=== PATIENT | female | born 1950 | race Caucasian/White ===

== ENCOUNTER 2018-02-07 11:23 | Emergency (ER) | payer OTHER | END 2018-02-07 14:01 | disposition home or self-care (01) | LOC: FTE 11:23 | DX: M79.674 Pain in right toe(s) (principal); L60.0 Ingrowing nail; I10 Essential (primary) hypertension; F17.210 Nicotine dependence, cigarettes, uncomplicated | CPT/HCPCS: 11765; 73660; 99283-25 ==

== ENCOUNTER 2018-09-13 12:24 | Emergency (ER) | payer OTHER ==
[2018-09-13 15:36] LABS: ADD MAN DIFF? NO
[2018-09-13] MEDS: SOD CHLORIDE 0.9% 1,000 ML IV (15:39)
[2018-09-13] MEDS: traMADol 50 MG TAB PO (15:39)
[2018-09-13 15:47] LABS: BASOPHILS % 0.4 % (0.0-2.0); EOSINOPHILS # 0.2 10^3/ul (0.0-0.5); HEMATOCRIT 46.8 % (37.0-47.0); HEMOGLOBIN 15.5 g/dl (12.0-16.0); LYMPHOCYTES # 2.3 10^3/ul (0.8-2.9); LYMPHOCYTES % 33.4 % (15.0-51.0); MEAN CORPUSCULAR HEMOGLOBIN 32.9 pg (29.0-33.0); MEAN CORPUSCULAR HGB CONC 33.1 g/dl (32.0-37.0); MEAN CORPUSCULAR VOLUME 99.4 fl (82.0-101.0); MEAN PLATELET VOLUME 11.5 fl (7.4-10.4); MONOCYTE # 0.4 10^3/ul (0.3-0.9); MONOCYTES % 5.5 % (0.0-11.0); NEUTROPHILS % 57.6 % (39.0-77.0); PLATELET COUNT 168 10^3/UL (140-415); RED BLOOD COUNT 4.71 10^6/ul (4.20-5.40)
[2018-09-13] MEDS: DIPHENOXYLATE/ATROPINE TAB PO (15:52)
[2018-09-13 16:15] LABS: ALANINE AMINOTRANSFERASE 14 IU/L (13-69); ALBUMIN 4.6 g/dl (3.3-4.9); ALBUMIN/GLOBULIN RATIO 1.53; ALKALINE PHOSPHATASE 57 IU/L (42-121); ANION GAP 12 (5-13); ASPARTATE AMINO TRANSFERASE 20 IU/L (15-46); BILIRUBIN,INDIRECT 0.7 mg/dl (0-1.1); BILIRUBIN,TOTAL 0.7 mg/dl (0.2-1.3); BLOOD UREA NITROGEN 11 mg/dl (7-20); CALCIUM 10.2 mg/dl (8.4-10.2); CARBON DIOXIDE 26 mmol/L (21-31); CHLORIDE 107 mmol/L (97-110); CREATININE 0.74 mg/dl (0.44-1.00); Estimated GFR > 60 mL/min (>60); GLUCOSE 104 mg/dl (70-220); POTASSIUM 4.3 mmol/L (3.5-5.1); SODIUM 145 mmol/L (135-144); TOTAL PROTEIN 7.6 g/dl (6.1-8.1)
== END 2018-09-13 17:08 | disposition home or self-care (01) ==
LOC: E/R 12:24
DX: E87.0 Hyperosmolality and hypernatremia (principal); I10 Essential (primary) hypertension; F17.200 Nicotine dependence, unspecified, uncomplicated; E86.0 Dehydration
CPT/HCPCS: 80053; 85025; 96360; 99284-25